=== PATIENT | female | born 1955 | race Caucasian/White ===

== ENCOUNTER 2025-04-20 08:38 | Day surgery (SDC) | payer MEDICARE ==
[2025-04-20] MEDS ORDERED: LIDOCAINE HCL 1% 50 MG/5 ML VL IJ ONE (08:39)
[2025-04-20] MEDS ORDERED: BUPIVACAINE 0.5% VIAL IJ ONE (08:39)
[2025-04-20] MEDS ORDERED: methylPREDNISolone acetate IM ONE (08:39)
[2025-04-20] MEDS ORDERED: propofoL IV ONE (10:42)
--- NOTE | 2025-04-20 11:56 | XRAY ---
Indication: Left L4-S1 RFA. Intraoperative fluoroscopy provided for 21 seconds. 4 digital spot images submitted for interpretation demonstrates posterior needle tips projecting over expected left L4-S1 nerve roots. Correlate with intraoperative findings/report.
--- NOTE | 2025-04-20 12:32 | XRAY ---
21 seconds of fluoroscopy was used in surgery for a left L4-S1 RFA.
[2025-04-20] MEDS ORDERED: Lactated Ringers 1,000 ML IV ONE (14:02)
== END 2025-04-20 11:15 | disposition home or self-care (01) ==
LOC: SDC-PAIN 08:38
PROVIDERS: ATTEND Psychiatry & Neurology Pain Medicine
DX: M47.817 Spondylosis without myelopathy or radiculopathy, lumbosacral region (principal); E11.9 Type 2 diabetes mellitus without complications